=== PATIENT | female | born 1940 | race Two or more races ===

== ENCOUNTER 2023-12-07 16:58 | Inpatient (IN) | payer MEDICARE ==
[~2023-12-07] VITALS: Ht 152.4 cm; Wt 44.5 kg
[2023-12-07] MEDS ORDERED: 0.9% SODIUM CHLORIDE 10 ML SYRINGE IVP PRN ×2 (17:45→22:15)
[2023-12-07 18:29] LABS: APPEARANCE,URINE TURBID (CLEAR); BILIRUBIN,URINE NEGATIVE (NEGATIVE); COLOR,URINE YELLOW (YELLOW); GLUCOSE, URINE (UA) NEGATIVE (NEGATIVE); KETONES,URINE NEGATIVE (NEGATIVE); LEUKOCYTE ESTERASE ,URINE LARGE (NEGATIVE); NITRATE,URINE NEGATIVE (NEGATIVE); OCCULT BLOOD,URINE MODERATE (NEGATIVE); PROTEIN,URINE 300-600,SEE CONFIRM mg/dL (NEGATIVE); SPECIFIC GRAVITIY, URINE 1.012 (1.003-1.030); UROBILINOGEN,URINE <=1.0 mg/dL (<=1.0)
[2023-12-07 18:29] LABS: BASOPHILS % (AUTO) 0.5 % (0.0-2.0); EOSINOPHILS % (AUTO) 4.1 % (1.0-6.0); HEMATOCRIT 31.3 % (36-46); HEMOGLOBIN 10.4 g/dL (12.0-16.0); LYMPHOCYTES # (AUTO) 2.2 K/uL (1.0-4.8); LYMPHOCYTES % (AUTO) 32.5 % (22.0-44.0); MEAN CORPUSCULAR HEMOGLOBIN 30.4 pg (26.0-34.0); MEAN CORPUSCULAR HGB CONC 33.1 G/dL (31.0-37.0); MEAN CORPUSCULAR VOLUME 92 fL (80-100); MONOCYTES # (AUTO) 0.5 K/uL (0.1-1.0); MONOCYTES % (AUTO) 7.1 % (2.0-9.0); NEUTROPHILS # (AUTO) 3.8 K/uL (1.8-7.7); NEUTROPHILS % (AUTO) 55.8 % (40.0-70.0); PLATELET COUNT (AUTO) 228 K/uL (150-450); RED BLOOD CELL COUNT(AUTO) 3.41 MIL/uL (4.00-5.20); RED CELL DISTRIBUTION WIDTH 13.5 % (11.5-14.5); WHITE BLOOD COUNT (AUTO) 6.8 K/uL (4.5-11.0)
[2023-12-07 18:39] LABS: ANION GAP 11 mmol/L (8-16); CALCIUM, TOTAL 8.4 mg/dL (8.8-10.5); CARBON DIOXIDE 25 mmol/L (22-29); CHLORIDE 107 mmol/L (98-107); CREATININE 0.78 mg/dL (0.60-1.30); GLOMERULAR FILTR. RATE CALC > 60 mL/min (>60); GLUCOSE,RANDOM 83 mg/dL (70-110); POTASSIUM 4.1 mmol/L (3.5-5.1); SODIUM SERUM 143 mmol/L (136-145); UREA NITROGEN, BLOOD 15 mg/dL (7-18)
[2023-12-07 18:45] LABS: ALBUMIN 2.7 g/dL (3.4-5.0); ALKALINE PHOSPHATASE 72 U/L (46-116); ASPARTATE AMINOTRANSFERASE 9 U/L (15-37); BILIRUBIN,TOTAL 0.3 mg/dL (0.1-1.0); TOTAL PROTEIN, SERUM 6.1 g/dL (6.4-8.2)
[2023-12-07 18:50] LABS: BACTERIA,URINE Many /HPF (None Seen); SQUAMOUS EPITHELIAL CELL,UR Moderate /LPF (None Seen); SULFOSALICYLIC ACID,URINE 3+ (Negative); WBC,URINE 51-100 /HPF (0-5)
[2023-12-07 18:52] LABS: LACTIC ACID 0.6 mmol/L (0.4-2.0)
[2023-12-07 18:58] LABS: ALANINE AMINOTRANSFERASE 12 U/L (12-78)
[2023-12-07] MEDS: SODIUM CHLORIDE 0.9% 1,000 ML IV ONE (19:04)
[2023-12-07] MEDS: CefTRIAXone 1 GM/DEXTROSE 50 ML IV ONE (19:04)
[2023-12-07] MEDS ORDERED: ONDANSETRON HCL 4 MG/2 ML VIAL IVP PRN (22:15)
[2023-12-07] MEDS ORDERED: ACETAMINOPHEN 325 MG TABLET PO PRN (22:15)
[2023-12-07 23:02] LABS: ANION GAP 6 mmol/L (8-16); CALCIUM, TOTAL 8.1 mg/dL (8.8-10.5); CARBON DIOXIDE 27 mmol/L (22-29); CHLORIDE 108 mmol/L (98-107); CREATININE 0.65 mg/dL (0.60-1.30); GLOMERULAR FILTR. RATE CALC > 60 mL/min (>60); GLUCOSE,RANDOM 81 mg/dL (70-110); POTASSIUM 3.6 mmol/L (3.5-5.1); SODIUM SERUM 141 mmol/L (136-145); UREA NITROGEN, BLOOD 13 mg/dL (7-18)
[2023-12-08 00:10] VITALS: BP 119/55; PULSE 66; RESP 20; TEMP 98.6
[2023-12-08 03:54] VITALS: BP 134/53; PULSE 69; RESP 18; TEMP 98.1
[2023-12-08 07:03] LABS: BASOPHILS % (AUTO) 0.5 % (0.0-2.0); HEMATOCRIT 32.9 % (36-46); LYMPHOCYTES # (AUTO) 1.8 K/uL (1.0-4.8); LYMPHOCYTES % (AUTO) 28.3 % (22.0-44.0); MEAN CORPUSCULAR HEMOGLOBIN 30.6 pg (26.0-34.0); MEAN CORPUSCULAR HGB CONC 33.4 G/dL (31.0-37.0); MEAN CORPUSCULAR VOLUME 92 fL (80-100); MONOCYTES # (AUTO) 0.4 K/uL (0.1-1.0); MONOCYTES % (AUTO) 6.1 % (2.0-9.0); NEUTROPHILS # (AUTO) 3.8 K/uL (1.8-7.7); NEUTROPHILS % (AUTO) 61.1 % (40.0-70.0); PLATELET COUNT (AUTO) 226 K/uL (150-450); RED BLOOD CELL COUNT(AUTO) 3.58 MIL/uL (4.00-5.20); RED CELL DISTRIBUTION WIDTH 13.5 % (11.5-14.5); WHITE BLOOD COUNT (AUTO) 6.2 K/uL (4.5-11.0)
[2023-12-08] MEDS: CefTRIAXone 1 GM/DEXTROSE 50 ML IV SCH (08:00)
[2023-12-08 09:15] VITALS: BP 126/54; PULSE 76; RESP 17
[2023-12-08] MEDS ORDERED: TRAZ-257 PO (10:45)
[2023-12-08] MEDS ORDERED: QUET100T PO (10:45)
[2023-12-08] MEDS ORDERED: LOSA-381 PO (10:45)
[2023-12-08] MEDS ORDERED: SODIUM CHLORIDE 0.9% 500 ML IV ONE (11:39)
[2023-12-08] MEDS: ENOXAPARIN SODIUM 60 MG/0.6 ML PF SYRINGE SQ SCH (11:41)
[2023-12-08] MEDS: LOSARTAN POTASSIUM 25 MG TABLET PO SCH (11:41)
[2023-12-08] MEDS: QUEtiapine FUMARATE 100 MG TABLET PO SCH (11:41)
[2023-12-08 16:56] VITALS: BP 130/75; PULSE 87; RESP 20; TEMP 98.3
[2023-12-08] MEDS: TraZODone HCL 100 MG TABLET PO SCH (20:21)
[2023-12-08 20:22] VITALS: BP 132/63; PULSE 73; RESP 19; TEMP 98
[2023-12-09 06:09] VITALS: BP 152/72; PULSE 73; RESP 20; TEMP 98.2
[2023-12-09 08:00] VITALS: BP 122/70; PULSE 96; RESP 18; TEMP 98.4
[2023-12-09] MEDS: CefTRIAXone 1 GM/DEXTROSE 50 ML IV SCH (13:01)
[2023-12-09 14:09] LABS: BASOPHILS % (AUTO) 0.5 % (0.0-2.0); EOSINOPHILS % (AUTO) 2.3 % (1.0-6.0); HEMATOCRIT 31.3 % (36-46); HEMOGLOBIN 10.4 g/dL (12.0-16.0); LYMPHOCYTES # (AUTO) 1.6 K/uL (1.0-4.8); LYMPHOCYTES % (AUTO) 26.1 % (22.0-44.0); MEAN CORPUSCULAR HEMOGLOBIN 30.4 pg (26.0-34.0); MEAN CORPUSCULAR HGB CONC 33.2 G/dL (31.0-37.0); MEAN CORPUSCULAR VOLUME 92 fL (80-100); MONOCYTES # (AUTO) 0.3 K/uL (0.1-1.0); MONOCYTES % (AUTO) 5.6 % (2.0-9.0); NEUTROPHILS % (AUTO) 65.5 % (40.0-70.0); PLATELET COUNT (AUTO) 222 K/uL (150-450); RED BLOOD CELL COUNT(AUTO) 3.42 MIL/uL (4.00-5.20); RED CELL DISTRIBUTION WIDTH 13.8 % (11.5-14.5); WHITE BLOOD COUNT (AUTO) 6.1 K/uL (4.5-11.0)
[2023-12-09 14:25] LABS: ALBUMIN 2.8 g/dL (3.4-5.0); BILIRUBIN,TOTAL 0.3 mg/dL (0.1-1.0); CALCIUM, TOTAL 8.7 mg/dL (8.8-10.5); CREATININE 0.9 mg/dL (0.60-1.30); MAGNESIUM 1.8 mg/dL (1.80-2.40); TOTAL PROTEIN, SERUM 6.4 g/dL (6.4-8.2)
[2023-12-09 16:00] VITALS: BP 94/56; PULSE 82; RESP 18; TEMP 98.8
[2023-12-09 19:45] VITALS: BP 110/47; PULSE 98; RESP 18; TEMP 98.5
[2023-12-09] MEDS: MUPIROCIN CALCIUM 2% 22 GM OINTMENT NASAL SCH (20:57)
[2023-12-10 05:55] VITALS: BP 112/51; PULSE 78; RESP 18; TEMP 98.5
[2023-12-10 08:27] VITALS: BP 142/75; PULSE 89; RESP 18; TEMP 99.6
[2023-12-10] MEDS ORDERED: TRAZ-257 PO (09:36)
[2023-12-10] MEDS ORDERED: LOSA-417 PO (09:36)
[2023-12-10] MEDS ORDERED: MUPI22OI2 NASAL (09:36)
[2023-12-10] MEDS ORDERED: QUET100T34 PO (09:36)
[2023-12-10] MEDS ORDERED: ACET325T51 PO (09:36)
[2023-12-10] MEDS ORDERED: CEPH-558 PO (09:39)
== END 2023-12-10 12:41 | disposition hospice, home (50) | DRG 640 ==
LOC: EMS 16:58 → EDH 22:10 → 4E 12-08
PROVIDERS: ADMIT Family Medicine; ATTEND Family Medicine
DX: E86.0 Dehydration (principal); G93.41 Metabolic encephalopathy; N39.0 Urinary tract infection, site not specified; I10 Essential (primary) hypertension
CPT/HCPCS: 71045; 80048; 80053; 81001; 81002; 83605; 83735; 84145; 85025; 87040; 87081; 87086; 87186; 87481; 93005; 99285; G0378; J0696; J1650; J7030; J7040; 36415-L1; 36415-TC